=== PATIENT | female | born 1980 | race Caucasian/White ===

== ENCOUNTER 2016-11-11 15:14 | Emergency (ER) | payer OTHER ==
[~2016-11-11 15:14] MED LIST: ADDERALL PO; NORCO 5/325 TAB1 TAB PO; SUBOXONE 8 MG-1 EAC1 SL; VICODIN 5/1 TAB 5/50 PO
== END 2016-11-11 16:19 | disposition home or self-care (01) ==
LOC: SED 15:14
DX: S13.4XXA Sprain of ligaments of cervical spine, initial encounter (principal); S23.3XXA Sprain of ligaments of thoracic spine, initial encounter; F17.210 Nicotine dependence, cigarettes, uncomplicated; V43.52XA Car driver injured in collision with other type car in traffic accident, initial encounter; Y92.410 Unspecified street and highway as the place of occurrence of the external cause
CPT/HCPCS: 99283

== ENCOUNTER → 2016-11-19 | Outpatient (CLI) | payer OTHER ==
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
== END | disposition home or self-care (01) ==
LOC: SRAD 13:47
DX: M25.551 Pain in right hip (principal)
CPT/HCPCS: 72040; J0171